=== PATIENT | female | born 1965 | race Caucasian/White ===

== ENCOUNTER 2016-12-06 17:24 | Emergency (ER) | payer BC ==
[2016-12-06 17:36] VITALS: BP 115/66
--- NOTE | 2016-12-06 20:18 | EDM.PDOC ---
ED HPI GENERAL MEDICAL PROBLEM - General Chief Complaint: Diabetic Complaint Stated Complaint: High blood sugar Time Seen by Provider: 12/06/16 17:50 Source of Information: Reports: Patient, RN Notes Reviewed History Limitations: Reports: No Limitations - History of Present Illness INITIAL COMMENTS - FREE TEXT/NARRATIVE: 51 year old female with history of type II diabetes presents to the ED today with chief complaint of high blood sugars for the past few days. She reports that her blood sugar levels have ranged from 200 to the high 300s. Today at 1430 , her glucose was 377. She reports that her blood sugar is normally well controlled on Lantus 52 units per day. She has been taking her diabetes medications as prescribed. She normally does not check her blood sugars throughout the day but has been the past few days. She is checking her blood sugar before and in between meals. She reports seeing a stock holder and was told that she is following a proper diet. She has had no changes in her diet or medications prior to onset. She phoned her PCP Dr. Corral who prescribed her Novolog and was instructed to take 5 units with meals. She has done this with no improvement in her blood sugar levels. The patient increased the Novolog dose to 10 units with a meal today. Additional pertinent history: The patient reports brain fog, forgetful, fatigued , and off balance at times. This is not normal for her. She's finding that normal, easy tasks are difficult for her. She has no facial droop, extremity weakness. She reports several areas of joint pain. This is not a new problem for her but she says it's become worse recently. She's seen a customer resolution specialist in the past and was told that she has osteoarthritis. The patient feels it's more than that and plans to get a second opinion. She denies fever, chills, recent illness, cough, chest pain, shortness of breath, abdominal pain, nausea, vomiting, diarrhea. Generalized Pain Score (Numeric/FACES): 6 - Related Data Allergies Allergy/AdvReac Type Severity Reaction Status Date / Time prochlorperazine edisylate Allergy Severe facial Verified 12/06/16 17:29 [From Compazine] numbness prochlorperazine maleate Allergy Severe facial Verified 12/06/16 17:29 [From Compazine] numbness aspirin Allergy Airway Verified 12/06/16 17:29 Tightness lisinopril Allergy Anaphylactic Verified 12/06/16 17:29 Shock Home Meds: Home Meds Atenolol. 02/22/14 [History] Hctz. 02/22/14 [History] Insulin Glarg,Human.Rec.Analog [LantUS] 14 unit SQ DAILY #1 bottle 02/22/14 [Rx] Venlafaxine [Effexor XR] 150 mg PO DAILY 02/22/14 [History] Albuterol/Ipratropium [DuoNeb 3.0-0.5 MG/3 ML] 3 ml NEB QID PRN #25 neb [Rx] Levofloxacin [Levaquin] 500 mg PO DAILY #5 tablet 06/17/15 [Rx] predniSONE [Prednisone] 20 mg PO BID #10 tablet 06/17/15 [Rx] Past Medical History HEENT History: Reports: Impaired Vision Other HEENT History: wears glasses Cardiovascular History: Reports: High Cholesterol, Hypertension Respiratory History: Reports: Asthma Gastrointestinal History: Reports: GERD 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: Psychiatric History: Reports: Depression Endocrine/Metabolic History: Reports: Diabetes, Type II - Infectious Disease History Infectious Disease History: Reports: Chicken Pox - Past Surgical History GI Surgical History: Reports: Cholecystectomy Female Surgical History: Reports: Hysterectomy Social & Family History - Tobacco Use Smoking Status *Q: Current Every Day Smoker Years of Tobacco use: 30 Packs/Tins Daily: 0.3 - Alcohol Use Days Per Week of Alcohol Use: 5 Number of Drinks Per Day: 3 Total Drinks Per Week: 15 - Recreational Drug Use Recreational Drug Use: No ED ROS GENERAL - Review of Systems Review Of Systems: See Below Constitutional: Reports: Malaise, Fatigue. Denies: Fever, Chills, Weakness, Diaphoresis Respiratory: Reports: No Symptoms. Denies: Shortness of Breath, Cough Cardiovascular: Reports: No Symptoms. Denies: Chest Pain, Dyspnea on Exertion, Edema, Lightheadedness, Syncope GI/Abdominal: Reports: No Symptoms. Denies: Abdominal Pain, Nausea, Vomiting Musculoskeletal: Reports: Other (joint pain ) ED EXAM GENERAL NO PERIP PULSE - Physical Exam Exam: See Below Exam Limited By: No Limitations General Appearance: Alert, WD/WN, No Apparent Distress, Anxious Eye Exam: Bilateral Eye: EOMI, PERRL Neck: Normal Inspection, Supple, Non-Tender, Full Range of Motion Respiratory/Chest: No Respiratory Distress, Lungs Clear, Normal Breath Sounds, No Accessory Muscle Use, Chest Non-Tender Cardiovascular: Normal Peripheral Pulses, Regular Rate, Rhythm, No Edema, No Murmur GI/Abdominal: Normal Bowel Sounds, Soft, Non-Tender Neurological: Alert, Oriented, CN II-XII Intact, Normal Cognition, Normal Gait, No Motor/Sensory Deficits, Other (cerebellar testing is itnact ) Psychiatric: Anxious, Tearful Skin Exam: Warm, Dry, Intact, Normal Color Course - Vital Signs Last Recorded V/S: Last Vital Signs Temp 97.3 F 12/06/16 17:30 Pulse 88 12/06/16 17:30 Resp 15 12/06/16 17:30 BP 115/66 12/06/16 17:30 Pulse Ox 98 12/06/16 17:30 - Orders/Labs/Meds Labs: Laboratory Tests 12/06/16 12/06/16 12/06/16 Range/Units 17:49 18:28 18:28 WBC 7.18 (3.98-10.04) K/mm3 RBC 3.98 (3.98-5.22) M/mm3 Hgb 12.4 (11.2-15.7) gm/L Hct 36.0 (34.1-44.9) % MCV 90.5 (79.4-94.8) fl MCH 31.2 (25.6-32.2) pg MCHC 34.4 (32.2-35.5) g/dl RDW Std Deviation 42.2 (36.4-46.3) fL Plt Count 268 (182-369) K/mm3 MPV 9.8 (9.4-12.3) fl Neut % (Auto) 54.1 (34.0-71.1) % Lymph % (Auto) 32.5 (19.3-51.7) % Hughes % (Auto) 7.9 (4.7-12.5) % Eos % (Auto) 4.6 (0.7-5.8) Baso % (Auto) 0.6 (0.1-1.2) % Neut # (Auto) 3.89 (1.56-6.13) K/mm3 Lymph # (Auto) 2.33 (1.18-3.74) K/mm3 Hughes # (Auto) 0.57 H (0.24-0.36) K/mm3 Eos # (Auto) 0.33 (0.04-0.36) K/mm3 Baso # (Auto) 0.04 (0.01-0.08) K/mm3 Sodium 137 (136-145) mEq/L Potassium 3.4 L (3.5-5.1) mEq/L Chloride 100 (98-107) mEq/L Carbon Dioxide 26 (21-32) mEq/L Anion Gap 14.4 (5-15) BUN 17 (7-18) mg/dL Creatinine 1.5 H (0.55-1.02) mg/dL Est Cr Clr Drug Dosing 37.45 mL/min Estimated GFR (MDRD) 36 (>60) mL/min BUN/Creatinine Ratio 11.3 L (14-18) Glucose 339 H (74-106) mg/dL POC Glucose 299 H (70-105) mg/dL Serum Osmolality 304 H (280-300) mosm/kg Calcium 9.7 (8.5-10.1) mg/dL Total Bilirubin 0.3 (0.2-1.0) mg/dL AST 20 (15-37) U/L ALT 33 (14-59) U/L Alkaline Phosphatase 107 (46-116) U/L Total Protein 7.3 (6.4-8.2) g/dl Albumin 3.8 (3.4-5.0) g/dl Globulin 3.5 gm/dL Albumin/Globulin Ratio 1.1 (1-2) Lipase 140 (73-393) U/L Urine Color (Yellow) Urine Appearance (Clear) Urine pH (5.0-8.0) Ur Specific Flom (1.005-1.030) Urine Protein (Negative) Urine Glucose (UA) (Negative) Urine Ketones (Negative) Urine Occult Blood (Negative) Urine Nitrite (Negative) Urine Bilirubin (Negative) Urine Urobilinogen (0.2-1.0) Ur Leukocyte Esterase (Negative) Urine RBC (0-5) /hpf Urine WBC (0-5) /hpf Ur Epithelial Cells (0-5) /hpf Urine Bacteria (FEW) /hpf Urine Mucus (FEW) /hpf Ketones (0.0-0.3) mM 12/06/16 12/06/16 Range/Units 18:28 19:43 WBC (3.98-10.04) K/mm3 RBC (3.98-5.22) M/mm3 Hgb (11.2-15.7) gm/L Hct (34.1-44.9) % MCV (79.4-94.8) fl MCH (25.6-32.2) pg MCHC (32.2-35.5) g/dl RDW Std Deviation (36.4-46.3) fL Plt Count (182-369) K/mm3 MPV (9.4-12.3) fl Neut % (Auto) (34.0-71.1) % Lymph % (Auto) (19.3-51.7) % Hughes % (Auto) (4.7-12.5) % Eos % (Auto) (0.7-5.8) Baso % (Auto) (0.1-1.2) % Neut # (Auto) (1.56-6.13) K/mm3 Lymph # (Auto) (1.18-3.74) K/mm3 Hughes # (Auto) (0.24-0.36) K/mm3 Eos # (Auto) (0.04-0.36) K/mm3 Baso # (Auto) (0.01-0.08) K/mm3 Sodium (136-145) mEq/L Potassium (3.5-5.1) mEq/L Chloride (98-107) mEq/L Carbon Dioxide (21-32) mEq/L Anion Gap (5-15) BUN (7-18) mg/dL Creatinine (0.55-1.02) mg/dL Est Cr Clr Drug Dosing mL/min Estimated GFR (MDRD) (>60) mL/min BUN/Creatinine Ratio (14-18) Glucose (74-106) mg/dL POC Glucose (70-105) mg/dL Serum Osmolality (280-300) mosm/kg Calcium (8.5-10.1) mg/dL Total Bilirubin (0.2-1.0) mg/dL AST (15-37) U/L ALT (14-59) U/L Alkaline Phosphatase (46-116) U/L Total Protein (6.4-8.2) g/dl Albumin (3.4-5.0) g/dl Globulin gm/dL Albumin/Globulin Ratio (1-2) Lipase (73-393) U/L Urine Color Yellow (Yellow) Urine Appearance Clear (Clear) Urine pH 7.0 (5.0-8.0) Ur Specific Flom 1.020 (1.005-1.030) Urine Protein 2+ H (Negative) Urine Glucose (UA) 2+ H (Negative) Urine Ketones Negative (Negative) Urine Occult Blood Trace-lysed H (Negative) Urine Nitrite Negative (Negative) Urine Bilirubin Negative (Negative) Urine Urobilinogen 0.2 (0.2-1.0) Ur Leukocyte Esterase Negative (Negative) Urine RBC 0-5 (0-5) /hpf Urine WBC 0-5 (0-5) /hpf Ur Epithelial Cells 5-10 H (0-5) /hpf Urine Bacteria Few (FEW) /hpf Urine Mucus Few (FEW) /hpf Ketones 0.22 (0.0-0.3) mM - Re-Assessments/Exams Free Text/Narrative Re-Assessment/Exam: Initial POC glucose is 299. Vitals stable. She has a normal neuro exam. CBC is normal. No evidence of infection to explain her rise in glucose levels. CMP is stable. K 3.4, creatinine 1.5, BUN 17, glucose 339, and anion gap is 14. Serum osmo is stable at 304 upper limits of normal. Serum ketones are WNL. There are no ketones in her urine. Lipase was ordered because the patient was very concerned about pancreatitis or pancreatic cancer. She has no symptoms to suggest these etiologies but she was very concerned. Workup today is negative for DKA or HHS. Her labs, vitals, and exam are stable. The cause of her sudden increase in blood sugars is unclear but may be related to her joint pain and inflammation. This will need to be further evaluated in the outpatient setting with her PCP. From an ER standpoint, she is stable and can be discharged with close PCP follow-up. She was instructed to monitor her glucose before each meal and take 5-10 units of Novolog with meals. I encouraged her to keep a dietary and blood glucose journal. She was instructed to return if her glucose continues to rise or if her glucometer reads "high." Departure - Departure Time of Disposition: 20:16 Disposition: Home, Self-Care 01 Condition: Good Clinical Impression: Hyperglycemia - Discharge Information Instructions: Hyperglycemia, [id number] Referrals: Eric Linares MD [Primary Care Provider] - Forms: ED Department Discharge Additional Instructions: Follow-up with Dr. Corral in 2-3 days Call the clinic in the morning to schedule Drink at least 80-100 oz of water per day Return to ER if your blood sugar becomes too high for your glucometer to read Check your blood sugar before every meal Take 5-10 units of Novolog with every meal if your glucose is over 200 Return to ER with any worsening of symptoms or additional concerns
== END 2016-12-06 20:27 | disposition home or self-care (01) ==
LOC: JD.ED 17:24
DX: E11.65 Type 2 diabetes mellitus with hyperglycemia (principal); E78.00 Pure hypercholesterolemia, unspecified; I10 Essential (primary) hypertension; J45.909 Unspecified asthma, uncomplicated; F17.210 Nicotine dependence, cigarettes, uncomplicated; K21.9 Gastro-esophageal reflux disease without esophagitis; Z90.49 Acquired absence of other specified parts of digestive tract; Z88.6 Allergy status to analgesic agent; Z79.899 Other long term (current) drug therapy; Z88.8 Allergy status to other drugs, medicaments and biological substances; Z90.710 Acquired absence of both cervix and uterus; Z79.4 Long term (current) use of insulin
CPT/HCPCS: 36415; 80053; 81001; 82009; 82962; 83690; 83930; 85025; 99283

== ENCOUNTER 2020-10-08 06:15 | Day surgery (SDC) | payer BC ==
[2020-10-08] MEDS ORDERED: Triamcinolone Acetonide 40 MG/ML 1 ML SDV ONE (06:24)
[2020-10-08] MEDS ORDERED: Lidocaine 1% with EPINEPHrine 1:100,000 10 ML MDV ONE (06:24)
[2020-10-08] MEDS ORDERED: Lidocaine 1% 30 ML SDV ONE (06:30)
[2020-10-08] MEDS ORDERED: Lactated Ringers 1,000 ML IV SCH (07:00)
[2020-10-08] MEDS ORDERED: Lidocaine 1%/Sod Bicarbonate in NS 8.4% 1 ML Syringe IDERM PRN (07:00)
[2020-10-08] MEDS ORDERED: Sodium Chloride 0.9% 10 ML Syringe FLUSH PRN (07:00)
--- NOTE | 2020-10-08 07:03 | PCM.PREANE ---
Preanesthetic Assessment - Procedure Proposed Procedure: right carpal tunnel release with left carpal tunnel steriod injection - Anesthesia/Transfusion/Family Hx Anesthesia History: Prior Anesthesia Reaction (nasuea) Family History of Anesthesia Reaction: No (nausea vommitting in mother) Transfusion History: No Prior Transfusion(s) Intubation History: Unknown - Review of Systems General: No Symptoms Pulmonary: Other (asthma history - use steriod inahler once per week ) Cardiovascular: No Symptoms Gastrointestinal: Other (GERD- well controlled with meds ) Neurological: Numbness, Tingling (bilateral N& T upper extremities ) Other: Reports: Depression, Anxiety - Physical Assessment NPO Status Date: 10/07/20 NPO Status Time: 23:00 Height: 1.63 m Weight: 81 kg ASA Class: 3 Mental Status: Alert & Oriented x3 Airway Class: Mallampati = 1 Dentition: Reports: Normal Dentition Thyro-Mental Finger Breadths: 3 Mouth Opening Finger Breadths: 5 ROM/Head Extension: Full Lungs: Clear to Auscultation, Normal Respiratory Effort Cardiovascular: Regular Rate, Regular Rhythm - Allergies Allergies/Adverse Reactions: Allergies Allergy/AdvReac Type Severity Reaction Status Date / Time prochlorperazine edisylate Allergy Severe facial Verified 10/08/20 06:54 [From Compazine] numbness prochlorperazine maleate Allergy Severe facial Verified 10/08/20 06:54 [From Compazine] numbness aspirin Allergy Airway Verified 10/08/20 06:54 Tightness lisinopril Allergy Anaphylactic Verified 10/08/20 06:54 Shock - Blood Blood Available: No Product(s) Available: None - Anesthesia Plan Beta López: Atenolol - Acknowledgements Anesthesia Type Planned: MAC Pt an Appropriate Candidate for the Planned Anesthesia: Yes Alternatives and Risks of Anesthesia Discussed w Pt/Guardian: Yes Pt/Guardian Understands and Agrees with Anesthesia Plan: Yes PreAnesthesia Questionnaire HEENT History: Reports: Impaired Vision Other HEENT History: wears glasses Cardiovascular History: Reports: High Cholesterol, Hypertension Respiratory History: Reports: Asthma Gastrointestinal History: Reports: GERD 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: Psychiatric History: Reports: Depression Endocrine/Metabolic History: Reports: Diabetes, Type II - Infectious Disease History Infectious Disease History: Reports: Chicken Pox - Past Surgical History GI Surgical History: Reports: Cholecystectomy Female Surgical History: Reports: Hysterectomy - CURRENT (IN HOUSE) MEDS Current Meds: Current Medications Lactated Ringer's (Ringers, Lactated) 1,000 mls @ 125 mls/hr IV ASDIRECTED JANICE Stop: 10/08/20 23:00 Lidocaine/Sodium Bicarbonate (Lidocaine 1%/Sod Bicarbonate In Ns 8.4% 1 Ml Syringe) 0.25 ml IDERM ONETIME PRN PRN Reason: Prior to IV Start Stop: 10/08/20 18:00 Sodium Chloride (Sodium Chloride 0.9% 10 Ml Syringe) 10 ml FLUSH ASDIRECTED PRN PRN Reason: Keep Vein Open Stop: 10/08/20 18:00 Discontinued Medications Bupivacaine HCl (Bupivacaine 0.25% 10 Ml Sdv) Confirm Administered Dose 20 ml .ROUTE .STK-MED ONE Stop: 10/08/20 06:25 Lidocaine HCl (Lidocaine 1% 30 Ml Sdv) Confirm Administered Dose 30 ml .ROUTE .STK-MED ONE Stop: 10/08/20 06:31 Lidocaine/Epinephrine (Lidocaine 1% With Epinephrine 1:100,000 10 Ml Mdv) Confirm Administered Dose 10 ml .ROUTE .STK-MED ONE Stop: 10/08/20 06:25 Triamcinolone Acetonide (Triamcinolone Acetonide 40 Mg/Ml 1 Ml Sdv) Confirm Administered Dose 40 mg .ROUTE .STK-MED ONE Stop: 10/08/20 06:25 Triamcinolone Acetonide (Triamcinolone Acetonide 40 Mg/Ml 1 Ml Sdv) Confirm Administered Dose 80 mg .ROUTE .STK-MED ONE Stop: 10/08/20 06:44
[2020-10-08] MEDS: Bupivacaine 0.25% 10 ML SDV ONE ×4 (07:40→07:50)
[2020-10-08] MEDS: Triamcinolone Acetonide 40 MG/ML 1 ML SDV ONE ×2 (07:48→07:50)
[2020-10-08] MEDS ORDERED: fentaNYL 100 MCG/2 ML SDV ONE (07:50)
[2020-10-08] MEDS ORDERED: Midazolam 1 MG/ML 2 ML SDV ONE (07:50)
[2020-10-08] MEDS ORDERED: Lidocaine 1% 4 ML ONE (07:50)
[2020-10-08] MEDS ORDERED: ceFAZolin 1 GM Vial ONE (07:50)
[2020-10-08] MEDS ORDERED: Propofol 200 MG/20 ML SDV ONE (07:50)
[2020-10-08] MEDS ORDERED: Ondansetron 4 MG/2 ML SDV ONE (07:55)
--- NOTE | 2020-10-08 08:08 | PCM48HPAN ---
Post Anesthesia Note - EVALUATION WITHIN 48HRS OF ANESTHETIC Vital Signs in Normal Range: Yes Patient Participated in Evaluation: Yes Respiratory Function Stable: Yes Airway Patent: Yes Cardiovascular Function Stable: Yes Hydration Status Stable: Yes Pain Control Satisfactory: Yes Nausea and Vomiting Control Satisfactory: Yes Mental Status Recovered: Yes Vital Signs: Last Vital Signs Temp 36.4 C 10/08/20 07:00 Pulse 81 10/08/20 07:00 Resp 16 10/08/20 07:00 BP 121/63 10/08/20 07:00 Pulse Ox 97 10/08/20 07:00
[2020-10-08 08:39] VITALS: BP 152/72; PULSE 76
--- NOTE | 2020-10-08 11:29 | PCM.OPNOTE ---
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
--- NOTE | 2020-10-16 09:16 | OR ---
DATE OF OPERATION: 10/08/2020 SURGEON: Darin Toney MD OPERATION PERFORMED: Right carpal tunnel release with left carpal tunnel injection, and bilateral basilar thumb joint injections. PREOPERATIVE DIAGNOSIS: Bilateral median nerve compression neuropathy and bilateral basilar thumb joint arthritis. POSTOPERATIVE DIAGNOSIS: Bilateral median nerve compression neuropathy and bilateral basilar thumb joint arthritis. ANESTHESIA: Local MAC. ANESTHESIA PROVIDER: Mya Gudino. DIRECTOR ECONOMIC: Ranjana Shah PA-C ESTIMATED BLOOD LOSS: 5 mL. COMPLICATIONS: None. CONDITION: Stable. DESCRIPTION OF PROCEDURE: The patient was identified in the preop holding area. Proper site was marked and identified by the surgeon. The patient was taken back to the operating theater where after adequate anesthesia, the patient's right upper extremity was sterilely prepped and draped in the usual sterile fashion. OR time-out was performed. The patient did not receive antibiotics and it is not indicated for soft tissue hand procedure. At this time, the right upper extremity was exsanguinated and an Esmarch was used as a tourniquet on the forearm. At this time, using 1% lidocaine without epinephrine and 0.25% Marcaine without epinephrine, the palmar cutaneous branch of the median nerve was anesthetized and then the incisional site was anesthetized using Tristan cardinal line and ulnar border of the fourth digit as reference. Once this had set up, an incision was made. Blunt dissection was taken down to the palmar cutaneous fascia. Palmar cutaneous fascia was incised with a [place] blade. At this time, the transverse carpal ligament was identified. A small rent was made in the transverse carpal ligament with a Somervell blade under direct visualization. Resection of the transverse carpal ligament was done distally using tenotomy scissors making sure to stop short of the palmar arch. At this time, attention was turned proximally after it was found to be adequately released. Using the tenotomy scissors keeping the tips ulnar to protect the palmar cutaneous branch of the median nerve, the superficial forearm fascia as well as the transverse carpal ligament were resected proximally. It was found to be adequate release both proximally and distally. At this time, adequate saline was irrigated through the wound. 4-0 nylon sutures were used closure of the skin. The patient was placed in a sterile soft dressing and sent to PACU in stable condition. After this was completed, under sterile technique, the bilateral basilar thumb joints were injected with 1 mL of 40 mg of Kenalog and 1 mL of 0.25% Marcaine and then the left carpal tunnel was injected with 1 mL of 40 mg of Kenalog and 2 mL of 0.25% Marcaine. The patient tolerated all procedures well and was sent to the PACU in stable condition. RIZWAN /[id number]
== END 2020-10-08 08:41 | disposition home or self-care (01) ==
LOC: JD.SDS 06:15
PROVIDERS: ATTEND Orthopaedic Surgery
DX: G56.03 Carpal tunnel syndrome, bilateral upper limbs (principal); M18.12 Unilateral primary osteoarthritis of first carpometacarpal joint, left hand; E11.9 Type 2 diabetes mellitus without complications; J45.40 Moderate persistent asthma, uncomplicated; G25.81 Restless legs syndrome; E78.5 Hyperlipidemia, unspecified; I12.9 Hypertensive chronic kidney disease with stage 1 through stage 4 chronic kidney disease, or unspecified chronic kidney disease; N18.30 Chronic kidney disease, stage 3 unspecified; Z88.8 Allergy status to other drugs, medicaments and biological substances; Z79.4 Long term (current) use of insulin; Z79.899 Other long term (current) drug therapy; Z87.891 Personal history of nicotine dependence
CPT/HCPCS: 01810; 82947; J0690; J2250; J2405; J2704; J3010; J3301; J3490; J7120

== ENCOUNTER 2021-02-13 16:59 | Emergency (ER) | payer BC ==
[2021-02-13] MEDS ORDERED: Atenolol 50 MG Tab PO ONE (17:37)
--- NOTE | 2021-02-13 17:38 | EDM.PDOC ---
ED HPI GENERAL MEDICAL PROBLEM - General Chief Complaint: Chest Pain Stated Complaint: CHEST PAIN Time Seen by Provider: 02/13/21 17:24 Source of Information: Reports: Patient, Family History Limitations: Reports: No Limitations - History of Present Illness INITIAL COMMENTS - FREE TEXT/NARRATIVE: She presents with onset of chest pain happened about 5 or 5:00 today was not doing anything at the time feels like heavy pressure in her left side of her chest going through to her back. Does not radiate to her arms neck or shoulders felt a little lightheaded but noDiaphoresis or fainting spell no nausea no increasing work of breathing or shortness of breath no pain with breathing. Has not had any fevers chills or sweats no coughing cold symptoms runny nose or sore throat no nausea vomiting or diarrhea no urinary symptoms. She does occasionally smoke she does have insulin-dependent diabetes and has high cholesterol Father had 6 way bypass. Patient had ran out of her atenolol and has not been able to take it this morning does feel a slight headache no vision changes no focal weakness no balance problems. Chest Pain Score (Numeric/FACES): 5 - Related Data Allergies Allergy/AdvReac Type Severity Reaction Status Date / Time prochlorperazine edisylate Allergy Intermediate facial Verified 02/13/21 17:16 [From Compazine] numbness prochlorperazine maleate Allergy Intermediate facial Verified 02/13/21 17:16 [From Compazine] numbness aspirin Allergy Airway Verified 02/13/21 17:16 Tightness lisinopril Allergy Anaphylactic Verified 02/13/21 17:16 Shock Home Meds: Home Meds Albuterol Sulfate [Albuterol Sulfate HFA] 1 - 2 puff INH Q4H PRN 10/08/20 [History] Budesonide/Formoterol Fumarate [Symbicort 160-4.5 Mcg Inhaler] 2 puff INH DAILY 10/08/20 [History] Cyclobenzaprine [Flexeril] 5 mg PO Q12H PRN 10/08/20 [History] DULoxetine [Cymbalta] 30 mg PO DAILY 10/08/20 [History] DULoxetine [Cymbalta] 60 mg PO DAILY 10/08/20 [History] Fluticasone Propionate [Flonase] 1 dose NASBOTH BID 10/08/20 [History] Furosemide [Lasix] 40 mg PO DAILY 10/08/20 [History] Gabapentin [Neurontin] 600 mg PO QID 10/08/20 [History] Insulin Aspart [NovoLOG] 1 dose SQ ASDIRECTED PRN 10/08/20 [History] Insulin Glargine,Hum.Rec.Anlog [Lantus Solostar] 80 units SQ DAILY 10/08/20 [History] Losartan [Cozaar] 100 mg PO DAILY 10/08/20 [History] Montelukast Sodium [Singulair] 10 mg PO DAILY 10/08/20 [History] Olopatadine [Pataday 0.2% Ophth Soln] 1 drop EYEBOTH DAILY 10/08/20 [History] Promethazine [Phenergan] 25 mg PO Q4H PRN 10/08/20 [History] Rosuvastatin Calcium [Crestor] 40 mg PO DAILY 10/08/20 [History] dilTIAZem HCL [Cardizem Cd] 240 mg PO DAILY 10/08/20 [History] tiZANidine [Zanaflex] 6 g PO BEDTIME 10/08/20 [History] atenoloL [Atenolol] 50 mg PO DAILY #30 02/13/21 [Rx] Past Medical History HEENT History: Reports: Impaired Vision Other HEENT History: wears glasses Cardiovascular History: Reports: High Cholesterol, Hypertension, Other (See Below) Other Cardiovascular History: edema Respiratory History: Reports: Asthma Gastrointestinal History: Reports: Colon Polyp, GERD, Hemorrhoids Genitourinary History: Reports: Other (See Below) Other Genitourinary History: JORDANA, CKD III, proteinuria 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: Musculoskeletal History: Reports: Back Pain, Chronic, Osteoarthritis, Other (See Below) Other Musculoskeletal History: restless leg syndrome, polyarthralgia, bilateral carpal tunnel syndrome, greater trochanteric bursitis, left ACL tear, muscle spasms, bilateral hip osteonecrosis, abductor tendinitis Neurological History: Reports: Other (See Below) Other Neuro History: lumbar facet arthropathy, lumbar degenerative disc disease, lumbar radiculopathy Psychiatric History: Reports: None, Depression Endocrine/Metabolic History: Reports: Diabetes, Type II Hematologic History: Reports: None Immunologic History: Reports: None Oncologic (Cancer) History: Reports: None Dermatologic History: Reports: None - Infectious Disease History Infectious Disease History: Reports: Chicken Pox - Past Surgical History Head Surgeries/Procedures: Reports: None HEENT Surgical History: Reports: Tonsillectomy Respiratory Surgical History: Reports: None GI Surgical History: Reports: Cholecystectomy Female Surgical History: Reports: Hysterectomy Other Female Surgeries/Procedures: bladder lift Endocrine Surgical History: Reports: None Neurological Surgical History: Reports: None Musculoskeletal Surgical History: Reports: None Oncologic Surgical History: Reports: None Dermatological Surgical History: Reports: None Social & Family History - Tobacco Use Tobacco Use Status *Q: Unknown Ever Used Tobacco - Caffeine Use Caffeine Use: Reports: Soda ED ROS GENERAL - Review of Systems Review Of Systems: See Below Constitutional: Denies: Fever, Chills, Diaphoresis HEENT: Denies: Rhinitis, Throat Pain Respiratory: Denies: Shortness of Breath, Wheezing, Pleuritic Chest Pain, Cough Cardiovascular: Reports: Chest Pain, Blood Pressure Problem. Denies: Dyspnea on Exertion, Edema, Lightheadedness, Orthopnea, Palpitations, PND Endocrine: Denies: Fatigue GI/Abdominal: Denies: Abdominal Pain, Diarrhea, Nausea, Vomiting : Denies: Dysuria Musculoskeletal: Reports: Back Pain. Denies: Neck Pain Skin: Reports: No Symptoms Neurological: Reports: No Symptoms, Headache Psychiatric: Reports: Anxiety ED EXAM, GENERAL - Physical Exam Exam: See Below Exam Limited By: No Limitations General Appearance: Alert, WD/WN, Anxious Eye Exam: Bilateral Eye: PERRL Throat/Mouth: Normal Inspection, Normal Oropharynx Head: Atraumatic, Normocephalic Neck: Normal Inspection, Supple, Non-Tender Respiratory/Chest: No Respiratory Distress, Lungs Clear, Normal Breath Sounds, No Accessory Muscle Use Cardiovascular: Normal Peripheral Pulses, Regular Rate, Rhythm, No Edema, No JVD GI/Abdominal: Normal Bowel Sounds, Soft, Non-Tender, No Organomegaly, No Distention Extremities: Normal Inspection, No Pedal Edema Neurological: Alert, Oriented, CN II-XII Intact, Normal Cognition, No Motor/Sensory Deficits Psychiatric: Anxious Skin Exam: Warm, Dry #1 Interpretation EKG Date: 02/13/21 Rhythm: NSR EKG Interpretation Comments: I reviewed EKG showing sinus rhythm rate of 85 AR 127 QRS is 71 QT corrected 449 baseline wandering from the position of the patient, no acute ST or T wave changes no acute ischemia noted. Course - Vital Signs Text/Narrative:: Ran out of her atenolol, comes in with chest pain, rule out acute coronary syndrome seems less likely PE or DVT, seems less likely aortic dissection no migratory pain or sharp tearing pain. Will give patient atenolol, suspect she does have some minor anxiety with this chest pain however. Work-up and evaluation as appropriate especially moderate score for her heart score anticipate at least need to serial troponins. She does have some atypical features with it however. Last Recorded V/S: Last Vital Signs Temp 98.5 F 02/13/21 17:13 Pulse 89 02/13/21 18:20 Resp 16 02/13/21 17:13 BP 157/85 H 02/13/21 18:20 Pulse Ox 100 02/13/21 17:13 - Orders/Labs/Meds Orders: Active Orders 24 hr Category Date Time Status Cardiac Monitoring [RC] . DIRECTED Care 02/13/21 17:39 Active Peripheral IV Care [RC] . DIRECTED Care 02/13/21 17:39 Active CXR [Chest 1V Frontal] [CR] Stat Exams 02/13/21 17:36 Taken UA RFX SUSIE AND CULT IF INDIC [URIN] Stat Lab 02/13/21 17:37 Ordered Sodium Chloride 0.9% [Saline Flush] Med 02/13/21 17:39 Active 10 ml FLUSH ASDIRECTED PRN Peripheral IV Insertion Adult [OM.PC] Stat Oth 02/13/21 17:39 Ordered EKG 12 Lead [EK] Stat Ther 02/13/21 17:25 Ordered Medication Orders Sodium Chloride (Sodium Chloride 0.9% 10 Ml Syringe) 10 ml FLUSH ASDIRECTED PRN PRN Reason: Keep Vein Open Labs: Laboratory Tests 02/13/21 02/13/21 Range/Units 18:28 18:28 WBC 7.02 (3.98-10.04) K/mm3 RBC 4.87 (3.98-5.22) M/mm3 Hgb 16.5 H D (11.2-15.7) gm/dl Hct 50.2 H (34.1-44.9) % MCV 103.1 H D (79.4-94.8) fl MCH 33.9 H (25.6-32.2) pg MCHC 32.9 (32.2-35.5) g/dl RDW Std Deviation 50.1 H (36.4-46.3) fL Plt Count 280 (182-369) K/mm3 MPV 9.6 (9.4-12.3) fl Neut % (Auto) 48.4 (34.0-71.1) % Lymph % (Auto) 40.0 (19.3-51.7) % [place] % (Auto) 8.3 (4.7-12.5) % Eos % (Auto) 2.4 (0.7-5.8) Baso % (Auto) 0.6 (0.1-1.2) % Neut # (Auto) 3.40 (1.56-6.13) K/mm3 Lymph # (Auto) 2.81 (1.18-3.74) K/mm3 [place] # (Auto) 0.58 H (0.24-0.36) K/mm3 Eos # (Auto) 0.17 (0.04-0.36) K/mm3 Baso # (Auto) 0.04 (0.01-0.08) K/mm3 Sodium 137 (136-145) mEq/L Potassium 3.4 L (3.5-5.1) mEq/L Chloride 98 (98-107) mEq/L Carbon Dioxide 29 (21-32) mEq/L Anion Gap 13.4 (5-15) BUN 16 (7-18) mg/dL Creatinine 1.1 H (0.55-1.02) mg/dL Est Cr Clr Drug Dosing TNP Estimated GFR (MDRD) 51 (>60) mL/min BUN/Creatinine Ratio 14.5 (14-18) Glucose 88 (70-99) mg/dL Calcium 10.0 (8.5-10.1) mg/dL Total Bilirubin 0.5 (0.2-1.0) mg/dL AST 37 (15-37) U/L ALT 44 (14-59) U/L Alkaline Phosphatase 103 (46-116) U/L Troponin I < 0.017 (0.00-0.056) ng/mL Total Protein 8.8 H (6.4-8.2) g/dl Albumin 4.7 (3.4-5.0) g/dl Globulin 4.1 gm/dL Albumin/Globulin Ratio 1.2 (1-2) Lipase 74 (73-393) U/L Meds: Medications Generic Name Dose Route Start Last Admin Trade Name Freq PRN Reason Stop Dose Admin Sodium Chloride 10 ml 02/13/21 17:39 Sodium Chloride 0.9% 10 Ml Syringe FLUSH ASDIRECTED PRN Keep Vein Open Discontinued Medications Generic Name Dose Route Start Last Admin Trade Name Freq PRN Reason Stop Dose Admin Atenolol 50 mg 02/13/21 17:37 02/13/21 18:20 Atenolol 50 Mg Tab PO 02/13/21 17:38 50 mg ONETIME ONE Administration Morphine Sulfate 4 mg 02/13/21 17:39 02/13/21 18:12 Morphine 4 Mg/Ml Syringe IVPUSH 02/13/21 17:40 4 mg ONETIME ONE Administration Ondansetron HCl 4 mg 02/13/21 17:39 02/13/21 18:12 Ondansetron 4 Mg/2 Ml Sdv IVPUSH 02/13/21 17:40 4 mg ONETIME ONE Administration - Radiology Interpretation Free Text/Narrative:: Portable chest x-ray shows poor inspiratory effort no cardiomegaly, no pleural effusion or infiltrate, no acute findings. - Re-Assessments/Exams Free Text/Narrative Re-Assessment/Exam: 02/13/21 19:16 Sodium 137 potassium 3.4 chloride 98 CO2 is 29 BUN is 16 creatinine 1.1 glucose 88 liver function test normal troponin negative lipase normal white blood cell count 7000 hemoglobin 16.5 hematocrit 50.2 platelet count 280,000 02/13/21 19:22 Patient does not want to stay for second troponin she understands the potential risk especially in light of her heart score and delta troponin/onset of troponin leak would be farther into the course of her timing. She does feel a lot be tter and she does feel like it is from the stress of not being on get her prescription filled and that they were trying to tell her that she never picked it up but could not get a refill. We will write her for prescription for #30 of the atenolol to 50 mg, follow-up with her primary care provider Departure - Departure Time of Disposition: 19:30 Disposition: Home, Self-Care 01 Condition: Good Clinical Impression: Chest pain Qualifiers: Chest pain type: unspecified Qualified Code(s): R07.9 - Chest pain, unspecified Hypertension Qualifiers: Hypertension type: unspecified Qualified Code(s): I10 - Essential (primary) hypertension Prescriptions: atenoloL [Atenolol] 50 mg PO DAILY #30 Instructions: Nonspecific Chest Pain, Adult, Hypertension, Adult, [id number] Referrals: Joe Talbert MD [Primary Care Provider] - Forms: ED Department Discharge Additional Instructions: Follow-up with your primary care provider on Monday make sure you continue your atenolol daily. Return to the emergency room with any increasing chest pain especially associated with shortness of breath lightheadedness dizziness breathing difficulty fainting spell or worsening symptoms. Care Plan Goals: Recommend follow-up with your primary provider on Monday to let them know he had come to the emergency room for chest pain. Fill up your new prescription for atenolol 50 mg once a day. Call 911 return if any recurrent chest pain especially associated with lightheadedness dizziness shortness of breath fainting spell breathing difficulty or worsening. Sepsis Event Note (ED) - Evaluation Sepsis Screening Result: No Definite Risk - Focused Exam Vital Signs: Vital Signs Temp Pulse Pulse Resp BP BP Pulse Ox 02/13/21 18:20 89 157/85 H 02/13/21 17:13 98.5 F 100 16 166/91 H 100 - My Orders Last 24 Hours: My Active Orders 02/13/21 17:25 EKG 12 Lead [EK] Stat 02/13/21 17:36 CXR [Chest 1V Frontal] [CR] Stat 02/13/21 17:37 UA RFX SUSIE AND CULT IF INDIC [URIN] Stat 02/13/21 17:39 Cardiac Monitoring [RC] . DIRECTED Peripheral IV Care [RC] . DIRECTED Sodium Chloride 0.9% [Saline Flush] 10 ml FLUSH ASDIRECTED PRN Peripheral IV Insertion Adult [OM.PC] Stat - Assessment/Plan Last 24 Hours: My Active Orders 02/13/21 17:25 EKG 12 Lead [EK] Stat 02/13/21 17:36 CXR [Chest 1V Frontal] [CR] Stat 02/13/21 17:37 UA RFX SUSIE AND CULT IF INDIC [URIN] Stat 02/13/21 17:39 Cardiac Monitoring [RC] . DIRECTED Peripheral IV Care [RC] . DIRECTED Sodium Chloride 0.9% [Saline Flush] 10 ml FLUSH ASDIRECTED PRN Peripheral IV Insertion Adult [OM.PC] Stat
[2021-02-13] MEDS ORDERED: Sodium Chloride 0.9% 10 ML Syringe FLUSH PRN (17:39)
[2021-02-13] MEDS ORDERED: Ondansetron 4 MG/2 ML SDV IVPUSH ONE (17:39)
[2021-02-13] MEDS ORDERED: Morphine 4 MG/ML Syringe IVPUSH ONE (17:39)
[2021-02-13 18:21] VITALS: BP 157/85; PULSE 89
--- NOTE | 2021-02-14 08:52 | CR ---
Chest: Portable view of the chest was obtained. Comparison: Prior chest x-ray of 06/17/15. Heart size and mediastinum are normal. Lungs are clear with no acute parenchymal change. Slight scoliosis is noted within the spine. No acute osseous abnormality is appreciated. Impression: 1. Incidental findings as described above. 2. Nothing acute is seen on portable chest x-ray. Diagnostic code #2
== END 2021-02-13 19:50 | disposition home or self-care (01) ==
LOC: JD.ED 16:59
DX: I12.9 Hypertensive chronic kidney disease with stage 1 through stage 4 chronic kidney disease, or unspecified chronic kidney disease (principal); E11.22 Type 2 diabetes mellitus with diabetic chronic kidney disease; N18.30 Chronic kidney disease, stage 3 unspecified; R07.9 Chest pain, unspecified; E78.00 Pure hypercholesterolemia, unspecified; J45.909 Unspecified asthma, uncomplicated; M19.90 Unspecified osteoarthritis, unspecified site; F17.200 Nicotine dependence, unspecified, uncomplicated; Z88.8 Allergy status to other drugs, medicaments and biological substances; Z79.4 Long term (current) use of insulin; Z79.899 Other long term (current) drug therapy
CPT/HCPCS: 36415; 71045; 80053; 83690; 84484; 85025; 93005; 96374; 96375; 99285; A9270; J2270; J2405

== ENCOUNTER 2021-04-28 06:13 | Day surgery (SDC) | payer BC ==
[~2021-04-28 06:13] MED LIST: Acetaminophen 325 MG Tab PO SCH; Lidocaine 1%/Sod Bicarbonate in NS 8.4% 1 ML Syringe IDERM PRN; Morphine 8 MG, EPINEPHrine 0.3 MG, Cefuroxime 750 MG, Sodium Chloride 0.9% 8.9 ML PRN; Pregabalin 25 MG Cap PO SCH; Sodium Chloride 0.9% 10 ML Syringe FLUSH PRN; oxyCODONE ER 10 MG TAB.ER PO SCH
[2021-04-28] MEDS: Lactated Ringers 1,000 ML IV SCH ×2 (06:40→09:30)
[2021-04-28] MEDS ORDERED: fentaNYL 100 MCG/2 ML SDV ONE (06:57)
[2021-04-28] MEDS ORDERED: Propofol 200 MG/20 ML SDV ONE ×2 (06:58→08:38)
[2021-04-28] MEDS ORDERED: Midazolam 1 MG/ML 2 ML SDV ONE ×2 (06:58→09:09)
--- NOTE | 2021-04-28 07:09 | PCM.PREANE ---
Preanesthetic Assessment - Procedure Proposed Procedure: Left total hip replacement - Anesthesia/Transfusion/Family Hx Anesthesia History: Prior Anesthesia Reaction (nasuea) Type of Anesthesia Reaction: Excessive Nausea/Vomiting Transfusion History: No Prior Transfusion(s) Intubation History: Unknown - Review of Systems General: No Symptoms Pulmonary: No Symptoms Cardiovascular: No Symptoms, Other (hx of silent NC) Gastrointestinal: No Symptoms Neurological: Pre-Existing Deficit (lower back pain), Other Other: Reports: Depression - Physical Assessment NPO Status Date: 04/27/21 NPO Status Time: 23:00 Vital Signs: Last Vital Signs Temp 98.2 F 04/28/21 06:00 Pulse 82 04/28/21 06:00 Resp 16 04/28/21 06:00 BP 138/87 04/28/21 06:00 Pulse Ox 95 04/28/21 06:00 Height: 1.63 m Weight: 79 kg ASA Class: 3 Mental Status: Alert & Oriented x3 Airway Class: Mallampati = 3 Dentition: Reports: [place](s) (reports loose molars upper left) Thyro-Mental Finger Breadths: 3 Mouth Opening Finger Breadths: 3 ROM/Head Extension: Full Lungs: Clear to Auscultation, Normal Respiratory Effort Cardiovascular: Regular Rate, Regular Rhythm - Lab Values: Laboratory Last Values POC Glucose 135 mg/dL (70-99) H 04/28/21 06:07 - Allergies Allergies/Adverse Reactions: Allergies Allergy/AdvReac Type Severity Reaction Status Date / Time prochlorperazine edisylate Allergy Intermediate facial Verified 04/28/21 06:31 [From Compazine] numbness prochlorperazine maleate Allergy Intermediate facial Verified 04/28/21 06:31 [From Compazine] numbness aspirin Allergy Airway Verified 04/28/21 06:31 Tightness lisinopril Allergy Anaphylactic Verified 04/28/21 06:31 Shock - Anesthesia Plan Beta López: Atenolol Med Last Dose Date: 04/28/21 Med Last Dose Time: 05:30 - Acknowledgements Anesthesia Type Planned: General Anesthesia, Spinal Pt an Appropriate Candidate for the Planned Anesthesia: Yes Alternatives and Risks of Anesthesia Discussed w Pt/Guardian: Yes Pt/Guardian Understands and Agrees with Anesthesia Plan: Yes PreAnesthesia Questionnaire HEENT History: Reports: Impaired Vision, Other (See Below) Other HEENT History: wears glasses, dry eyes Cardiovascular History: Reports: High Cholesterol, Hypertension, Other (See Below) Other Cardiovascular History: edema Respiratory History: Reports: Asthma Gastrointestinal History: Reports: Colon Polyp, GERD, Hemorrhoids, Other (See Below) Other Gastrointestinal History: post op nausea and vomiting Genitourinary History: Reports: Other (See Below) Other Genitourinary History: JORDANA, CKD III, proteinuria 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: Musculoskeletal History: Reports: Back Pain, Chronic, Osteoarthritis, Other (See Below) Other Musculoskeletal History: restless leg syndrome, polyarthralgia, bilateral carpal tunnel syndrome, greater trochanteric bursitis, left ACL tear, muscle spasms, bilateral hip osteonecrosis, abductor tendinitis Neurological History: Reports: Other (See Below) Other Neuro History: lumbar facet arthropathy, lumbar degenerative disc disease, lumbar radiculopathy Psychiatric History: Reports: Depression Endocrine/Metabolic History: Reports: Diabetes, Type II Hematologic History: Reports: None Immunologic History: Reports: None Oncologic (Cancer) History: Reports: None Dermatologic History: Reports: None - Infectious Disease History Infectious Disease History: Reports: Novel Coronavirus - Past Surgical History Head Surgeries/Procedures: Reports: None HEENT Surgical History: Reports: Tonsillectomy Respiratory Surgical History: Reports: None GI Surgical History: Reports: Cholecystectomy, Colonoscopy Female Surgical History: Reports: Breast Implant, Hysterectomy, Other (See Below) Other Female Surgeries/Procedures: bladder lift Endocrine Surgical History: Reports: None Neurological Surgical History: Reports: None Musculoskeletal Surgical History: Reports: None Oncologic Surgical History: Reports: None Dermatological Surgical History: Reports: None - SUBSTANCE USE Tobacco Use Status *Q: Former Tobacco User Recreational Drug Use History: No - HOME MEDS Home Medications: Home Meds Albuterol Sulfate [Albuterol Sulfate HFA] 1 - 2 puff INH Q4H PRN 10/08/20 [History] Budesonide/Formoterol Fumarate [Symbicort 160-4.5 Mcg Inhaler] 2 puff INH DAILY PRN 10/08/20 [History] DULoxetine [Cymbalta] 30 mg PO DAILY 10/08/20 [History] DULoxetine [Cymbalta] 60 mg PO DAILY 10/08/20 [History] Fluticasone Propionate [Flonase] 1 dose NASBOTH BID PRN 10/08/20 [History] Furosemide [Lasix] 40 mg PO DAILY 10/08/20 [History] Gabapentin [Neurontin] 600 mg PO QID 10/08/20 [History] Insulin Aspart [NovoLOG] 1 dose SQ ASDIRECTED PRN 10/08/20 [History] Insulin Glargine,Hum.Rec.Anlog [Lantus Solostar] 80 units SQ DAILY 10/08/20 [History] Olopatadine [Pataday 0.2% Ophth Soln] 1 drop EYEBOTH DAILY 10/08/20 [History] Promethazine [Phenergan] 25 mg PO Q4H PRN 10/08/20 [History] Rosuvastatin Calcium [Crestor] 40 mg PO DAILY 10/08/20 [History] dilTIAZem HCL [Cardizem Cd] 240 mg PO DAILY 10/08/20 [History] atenoloL [Atenolol] 50 mg PO DAILY #30 02/13/21 [Rx] Brexpiprazole [Rexulti] 1 mg PO DAILY 04/27/21 [History] Cholecalciferol (Vitamin D3) [Vitamin D3] 5,000 unit PO DAILY 04/27/21 [History] Naloxone HCl [Narcan] 1 dose NASBOTH ASDIRECTED PRN 04/27/21 [History] Omeprazole Magnesium [Prilosec Otc] 20 mg PO DAILY 04/27/21 [History] Semaglutide [Ozempic] 1 mg IM Q7D 04/27/21 [History] oxyCODONE 5 - 10 mg PO Q4H PRN #40 tab 04/27/21 [Rx] rOPINIRole [Requip] 1 mg PO BEDTIME 04/27/21 [History] - CURRENT (IN HOUSE) MEDS Current Meds: Current Medications Acetaminophen (Acetaminophen 325 Mg Tab) 975 mg PO ONETIME JANICE Last Admin: 04/28/21 06:48 Dose: 975 mg Documented by: Morphine Sulfate 8 mg/Epinephrine HCl 0.3 mg/Cefuroxime Sodium 750 mg/Sodium Chloride 8.9 ml 0 mg .XX ASDIRECTED PRN PRN Reason: PAIN Stop: 04/28/21 23:00 Lactated Ringer's (Ringers, Lactated) 1,000 mls @ 125 mls/hr IV ASDIRECTED JANICE Last Admin: 04/28/21 06:40 Dose: 125 mls/hr Documented by: Lidocaine/Sodium Bicarbonate (Lidocaine 1%/Sod Bicarbonate In Ns 8.4% 1 Ml Syringe) 0.25 ml IDERM ONETIME PRN PRN Reason: Prior to IV Start Oxycodone HCl (Oxycodone Er 10 Mg Tab.Er) 10 mg PO ONETIME [facility] Last Admin: 04/28/21 06:48 Dose: 10 mg Documented by: Pregabalin (Pregabalin 25 Mg Cap) 50 mg PO ONETIME JANICE Last Admin: 04/28/21 06:48 Dose: 50 mg Documented by: Sodium Chloride (Sodium Chloride 0.9% 10 Ml Syringe) 10 ml FLUSH ASDIRECTED PRN PRN Reason: Keep Vein Open Discontinued Medications Bupivacaine HCl (Bupivacaine 0.25% 10 Ml Sdv) Confirm Administered Dose 10 ml .ROUTE .STK-MED ONE Stop: 04/28/21 06:38 Morphine Sulfate 8 mg/Epinephrine HCl 0.3 mg/Cefuroxime Sodium 750 mg/Sodium Chloride 8.9 ml 0 mg .XX ASDIRECTED PRN PRN Reason: PAIN Morphine Sulfate 8 mg/Epinephrine HCl 0.3 mg/Cefuroxime Sodium 750 mg/Sodium Chloride 8.9 ml 0 mg .XX ASDIRECTED PRN PRN Reason: PAIN Fentanyl (Fentanyl 100 Mcg/2 Ml Sdv) Confirm Administered Dose 100 mcg .ROUTE .STK-MED ONE Stop: 04/28/21 06:58 Midazolam HCl (Midazolam 1 Mg/Ml 2 Ml Sdv) Confirm Administered Dose 2 mg .ROUTE .STK-MED ONE Stop: 04/28/21 06:59 Propofol (Propofol 200 Mg/20 Ml Sdv) Confirm Administered Dose 400 mg .ROUTE .STK-MED ONE Stop: 04/28/21 06:59 Tranexamic Acid (Tranexamic Acid 1,000 Mg/10 Ml Amp) Confirm Administered Dose 1,000 mg .ROUTE .STK-MED ONE Stop: 04/28/21 06:26 Triamcinolone Acetonide (Triamcinolone Acetonide 40 Mg/Ml 1 Ml Sdv) Confirm Administered Dose 40 mg .ROUTE .STK-MED ONE Stop: 04/28/21 06:38 Vancomycin HCl (Vancomycin 1 Gm Sdv) Confirm Administered Dose 1 gm .ROUTE .STK- MED ONE Stop: 04/28/21 06:26
[2021-04-28] MEDS ORDERED: ceFAZolin 1 GM Vial ONE (07:16)
[2021-04-28] MEDS ORDERED: Lactated Ringers 1,000 ML ONE (07:56)
[2021-04-28] MEDS: Vancomycin 1 GM SDV ONE ×2 (08:13→08:49)
[2021-04-28] MEDS: Morphine 8 MG, EPINEPHrine 0.3 MG, Cefuroxime 750 MG, Sodium Chloride 0.9% 8.9 ML PRN ×8 (08:13→08:49)
[2021-04-28] MEDS: Triamcinolone Acetonide 40 MG/ML 1 ML SDV ONE ×2 (08:14→09:11)
[2021-04-28] MEDS: Bupivacaine 0.25% 10 ML SDV ONE ×2 (08:15→09:11)
--- NOTE | 2021-04-28 10:47 | CR ---
Left hip and pelvis: AP view of the pelvis was obtained as well as crosstable lateral views of the left hip. Comparison: Prior left hip CT study of 03/03/21. Left hip prosthesis is noted. Components are aligned. Underlying bony structures show nothing acute. Minimal soft tissue air is seen. Impression: 1. Satisfactory postoperative radiographic appearance of recently placed left hip prosthesis. Diagnostic code #2
[2021-04-28] MEDS ORDERED: oxyCODONE 5 MG Tab PO PRN (10:55)
[2021-04-28] MEDS ORDERED: Albuterol 0.083% 2.5 MG/3 ML Neb Soln NEB ONE (11:37)
--- NOTE | 2021-04-28 12:23 | PCM.POSTAN ---
POST ANESTHESIA ASSESSMENT - MENTAL STATUS Mental Status: Alert, Oriented - VITAL SIGNS Vital Signs: Postoperative Vital Signs at 09:20 118/69 79 HR 20 RR 91% SpO2 - RESPIRATORY Respiratory Status: Respiratory Rate WNL, Airway Patent, O2 Saturation Stable, Supplemental Oxygen - CARDIOVASCULAR CV Status: Pulse Rate WNL, Blood Pressure Stable - GASTROINTESTINAL GI Status: No Symptoms - PAIN Pain Score: 0 (post SAB) - POST OP HYDRATION Hydration Status: Adequate & Stable
[2021-04-28] MEDS ORDERED: Cyclobenzaprine 10 MG Tab PO ONE (13:11)
[2021-04-28] MEDS ORDERED: oxyCODONE 5 MG Tab PO STA (13:11)
[2021-04-28] MEDS ORDERED: Ketorolac 30 MG/ML SDV IVPUSH SCH (13:45)
--- NOTE | 2021-04-28 14:10 | PCM48HPAN ---
Post Anesthesia Note - EVALUATION WITHIN 48HRS OF ANESTHETIC Vital Signs in Normal Range: Yes Patient Participated in Evaluation: Yes Respiratory Function Stable: Yes (maintains SpO2 on RA, lungs CTA) Airway Patent: Yes Cardiovascular Function Stable: Yes Hydration Status Stable: Yes Pain Control Satisfactory: Yes (continuing with PO analgesia) Nausea and Vomiting Control Satisfactory: Yes Mental Status Recovered: Yes Vital Signs: Last Vital Signs Temp 98.1 F 04/28/21 13:40 Pulse 91 04/28/21 13:40 Resp 16 04/28/21 13:40 BP 151/75 H 04/28/21 13:40 Pulse Ox 98 04/28/21 13:40 - COMMENTS/OBSERVATIONS Free Text/Narrative:: I have discussed with the patient the intraoperative episode of hypoxia which may have been attributed to fat microemboli to the lungs. I have explained that this was a reversible condition that seemed to have been resolved by now. Possible risks and complications related to pulmonary fat emboli have been explained to the patient and she has been given the choice to stay overnight for observation ( Dr Almaguer, the hospitalist has been made aware of that) or to go home and return to ED in case of chest pain, shortness of breath of any other cardiopulmonary changes. The patient and the family member verbalized understanding and opted to go home and be cognizant of any signs of respiratory of cardiac changes. Jose Alberto Holt, INDUCTION MACHINE SETTER
[2021-04-28 16:28] VITALS: BP 153/90; PULSE 75
--- NOTE | 2021-05-17 20:08 | PCM.OPNOTE ---
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
--- NOTE | 2021-05-18 08:13 | OR ---
DATE OF OPERATION: 04/28/2021 SURGEON: Darin Toney MD OPERATION PERFORMED: Left total hip arthroplasty with [employer] robotics with left basilar thumb joint injection. 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 ANESTHESIA: Local MAC with spinal. ANESTHESIA PROVIDER: Suzie Giordano. ASSISTANTS: Ranjana Shah PA-C, and Amy Clarke LPN ESTIMATED BLOOD LOSS: 100 mL. COMPLICATIONS: None. CONDITION: Stable. IMPLANTS: 1. [place] size 48 mm solid Tritanium II acetabular cup. 2. [place] size 2, 132-degree Accolade II stem. 3. 36, +0 Biolox femoral head. DESCRIPTION OF PROCEDURE: The patient was identified in the preoperative holding area. Proper site was marked, identified by the surgeon. The patient was taken back to the operative theater, where after adequate anesthesia, the patient was placed in a right lateral decubitus position. Axillary roll was placed. Pegs were then placed and well padded. The patient's gluteal fold was parallel to the floor. Left hip was then sterilely prepped and draped in the usual sterile fashion. OR time- out was performed. The patient received 2 g of Ancef. At this time, 3 small focal incisions were made over the iliac crest 3 fingerbreadths posterior to the ASIS. Three 4.0 Schanz pins were then placed and a [employer] robotic array was placed down onto the iliac crest. Standard posterior incision was made centered over the greater trochanter. IT band and gluteal fascia were incised. Charnley retractor was then placed. Checkpoint was placed in the greater tuberosity and leg lengths were measured using [place] Jeancarlos robotics. Takedown of short external rotators was then done from the level of the piriformis down to the lesser trochanter. Hip was then dislocated. Neck cut was completed and found to be adequate. Attention was turned to the acetabulum. Anterior and posterior acetabular retractors were placed. There was adequate visualization at this time. Removal of the pulvinar and the remaining labrum was done at this time. Checkpoint was placed on the superior rim of the acetabulum. Also, the 3 checkpoints on the iliac crest were then utilized and 15 points were obtained intra-articularly and then 15 points extra-articularly in the acetabulum. 48 mm reamer was placed on the [employer] robotic arm. It was then placed into the acetabulum and was reamed to 45 degrees of abduction and 20 degrees of anteversion and was found to have a good bony bleeding bed. A 48 mm Tritanium II cup was then placed on the [employer] robotic arm, it was impacted in place with adequate purchase. A 36 mm flat liner was then impacted into place. Attention was turned to the femur. Starter awl was placed down the canal. Box chisel was used out laterally. Starting with a 0 broach, I was able to broach up to a size 2, which was found to be rotationally and vertically stable. 132- degree neck with 0 was trialed. It was found to have adequate oriental orthodox of leg lengths and stable throughout range of motion. Bone hook was used to dislocate the hip. Trial implants were then removed. Size 2 Accolade II stem was then impacted into place and a 36, +0 Biolox femoral head was impacted on the stem. Hip was then relocated. #5 Ethibond was then used for closure of the capsule. 1 L of pulse lavage irrigation with Ancef was irrigated through the hip along with 400 mL of IrriSept irrigation. Topical tranexamic acid and vancomycin powder were applied and periarticular injection was completed. #2 barbed suture was used for closure of the IT band and gluteal fascia, 2-0 Vicryl was used subcutaneously, and Prineo was used for skin closure. The patient tolerated this part of the procedure well. After this, under sterile technique, 1 mL of 40 mg of Kenalog and 1 mL of 0.25% Marcaine were injected to the left basilar thumb joint. The patient tolerated all procedures well and was sent to PACU in stable condition. RIZWAN /[id number]
== END 2021-04-28 16:10 | disposition home or self-care (01) ==
LOC: JD.SDS 06:13
PROVIDERS: ATTEND Orthopaedic Surgery
DX: M16.12 Unilateral primary osteoarthritis, left hip (principal); M18.12 Unilateral primary osteoarthritis of first carpometacarpal joint, left hand; K21.9 Gastro-esophageal reflux disease without esophagitis; I12.9 Hypertensive chronic kidney disease with stage 1 through stage 4 chronic kidney disease, or unspecified chronic kidney disease; E11.22 Type 2 diabetes mellitus with diabetic chronic kidney disease; N18.30 Chronic kidney disease, stage 3 unspecified; Z79.4 Long term (current) use of insulin; Z79.899 Other long term (current) drug therapy; Z88.8 Allergy status to other drugs, medicaments and biological substances; Z98.890 Other specified postprocedural states; Z87.891 Personal history of nicotine dependence
CPT/HCPCS: 20605; 27130; 36415; 73501; 82947; 86850; 86900; 86901; 97110; 97116; 97161; A9270; C1713; C1776; J0171; J0690; J0697; J1885; J2250; J2270; J2370; J2704; J3010; J3301; J3370; J3490; J7120; 01214

== ENCOUNTER 2022-06-26 15:25 | Emergency (ER) | payer BC, MEDICARE ==
[2022-06-26 15:52] VITALS: BP 155/85; PULSE 84
[2022-06-26] MEDS ORDERED: Lactated Ringers 1,000 ML IV ONE (16:05)
[2022-06-26] MEDS ORDERED: fentaNYL 100 MCG/2 ML SDV IVPUSH ONE ×2 (16:06→17:38)
[2022-06-26] MEDS ORDERED: HYDROmorphone 0.5 MG/0.5 ML Syringe IVPUSH ONE (16:06)
[2022-06-26] MEDS ORDERED: oxyCODONE ER 20 MG TAB.ER PO ONE (17:36)
== END 2022-06-26 18:18 | disposition home or self-care (01) ==
LOC: JD.ED 15:25
DX: G89.18 Other acute postprocedural pain (principal); I12.9 Hypertensive chronic kidney disease with stage 1 through stage 4 chronic kidney disease, or unspecified chronic kidney disease; N18.30 Chronic kidney disease, stage 3 unspecified; E11.22 Type 2 diabetes mellitus with diabetic chronic kidney disease; E78.00 Pure hypercholesterolemia, unspecified; K21.9 Gastro-esophageal reflux disease without esophagitis; F32.A Depression, unspecified; Z79.4 Long term (current) use of insulin; Z79.899 Other long term (current) drug therapy; Z88.8 Allergy status to other drugs, medicaments and biological substances; Z88.6 Allergy status to analgesic agent
CPT/HCPCS: 72125; 96361; 96374; 96375; 96376; 99283; A9270; J1170; J3010; J7120

== ENCOUNTER 2022-07-02 18:47 | Emergency (ER) | payer BC, MEDICARE ==
[2022-07-02] MEDS ORDERED: Ondansetron 4 MG/2 ML SDV IVPUSH ONE (19:44)
[2022-07-02] MEDS ORDERED: Lactated Ringers 1,000 ML IV ONE (19:44)
[2022-07-02] MEDS ORDERED: Ondansetron 4 MG Tab.DIS ONE (19:58)
[2022-07-02] MEDS ORDERED: Ondansetron 4 MG Tab.DIS PO ONE (19:58)
[2022-07-02 20:23] VITALS: BP 148/83; PULSE 110
[2022-07-02] MEDS ORDERED: diphenhydrAMINE 50 MG/ML SDV IVPUSH ONE (22:41)
[2022-07-02] MEDS ORDERED: Metoclopramide 10 MG/2 ML SDV IVPUSH ONE (22:41)
[2022-07-02] MEDS ORDERED: Lactated Ringers 1,000 ML IV SCH (23:00)
[2022-07-03] MEDS ORDERED: Ondansetron 4 MG/2 ML SDV IVPUSH ONE (01:30)
[2022-07-03] MEDS ORDERED: LORazepam 1 MG Tab PO ONE (01:41)
[2022-07-03] MEDS ORDERED: LORazepam 2 MG/ML SDV IVPUSH ONE (01:47)
== END 2022-07-03 03:05 | disposition home or self-care (01) ==
LOC: JD.ED 18:47
DX: K52.9 Noninfective gastroenteritis and colitis, unspecified (principal); R11.2 Nausea with vomiting, unspecified; E78.00 Pure hypercholesterolemia, unspecified; E11.22 Type 2 diabetes mellitus with diabetic chronic kidney disease; I12.9 Hypertensive chronic kidney disease with stage 1 through stage 4 chronic kidney disease, or unspecified chronic kidney disease; N18.30 Chronic kidney disease, stage 3 unspecified; J45.909 Unspecified asthma, uncomplicated; K21.9 Gastro-esophageal reflux disease without esophagitis; Z88.8 Allergy status to other drugs, medicaments and biological substances; Z79.899 Other long term (current) drug therapy
CPT/HCPCS: 36415; 74019; 74176; 80053; 80307; 83690; 85025; 96361; 96374; 96375; 96376; 99284; A9270; J1200; J2060; J2405; J2765; J7120

== ENCOUNTER 2022-07-12 12:05 | Emergency (ER) | payer BC, MEDICARE ==
[2022-07-12 12:35] VITALS: PULSE 110
[2022-07-12] MEDS ORDERED: Sodium Chloride 0.9% 10 ML Syringe FLUSH PRN (12:37)
[2022-07-12] MEDS ORDERED: HYDROmorphone 0.5 MG/0.5 ML Syringe IVPUSH ONE (12:51)
[2022-07-12] MEDS ORDERED: Ondansetron 4 MG/2 ML SDV IVPUSH ONE ×2 (12:51→14:51)
[2022-07-12] MEDS ORDERED: Sodium Chloride 0.9% 1,000 ML IV STA (12:51)
[2022-07-12 14:15] LABS: CORONAVIRUS COVID-19 NAA NEGATIVE (NEGATIVE)
[2022-07-12 14:33] LABS: ESTIMATED GFR 65 mL/min (>60)
[2022-07-12] MEDS ORDERED: Dicyclomine 10 MG Cap PO ONE (14:53)
[2022-07-12] MEDS ORDERED: diphenhydrAMINE 50 MG/ML SDV IVPUSH ONE (16:09)
[2022-07-12] MEDS ORDERED: Metoclopramide 10 MG/2 ML SDV IVPUSH ONE (16:09)
[2022-07-12] MEDS ORDERED: LORazepam 2 MG/ML SDV IVPUSH ONE (16:10)
[2022-07-12 19:00] VITALS: BP 166/84
== END 2022-07-12 18:50 | disposition home or self-care (01) ==
LOC: JD.ED 12:05
DX: K52.9 Noninfective gastroenteritis and colitis, unspecified (principal); R11.2 Nausea with vomiting, unspecified; E11.22 Type 2 diabetes mellitus with diabetic chronic kidney disease; I12.9 Hypertensive chronic kidney disease with stage 1 through stage 4 chronic kidney disease, or unspecified chronic kidney disease; N18.30 Chronic kidney disease, stage 3 unspecified; K21.9 Gastro-esophageal reflux disease without esophagitis; Z88.6 Allergy status to analgesic agent; Z88.8 Allergy status to other drugs, medicaments and biological substances; Z20.822 Contact with and (suspected) exposure to COVID-19
CPT/HCPCS: 0240U; 36415; 74019; 80053; 81001; 83690; 85025; 86140; 96361; 96374; 96375; 96376; 99284; A9270; J1170; J1200; J2060; J2405; J2765; J3490; J7030

== ENCOUNTER 2024-11-12 06:54 | Day surgery (SDC) | payer BC, MEDICARE ==
[~2024-11-12 06:54] MED LIST changes: -Acetaminophen 325 MG Tab PO SCH; -Lidocaine 1%/Sod Bicarbonate in NS 8.4% 1 ML Syringe IDERM PRN; -Morphine 8 MG, EPINEPHrine 0.3 MG, Cefuroxime 750 MG, Sodium Chloride 0.9% 8.9 ML PRN; -Pregabalin 25 MG Cap PO SCH; +Sodium Chloride 0.9% 10 ML Syringe FLUSH SCH; -oxyCODONE ER 10 MG TAB.ER PO SCH
[2024-11-12] MEDS ORDERED: Propofol 200 MG/20 ML SDV ONE (07:12)
[2024-11-12] MEDS ORDERED: Lidocaine 1% 6 ML ONE (07:13)
[2024-11-12] MEDS: Lactated Ringers 1,000 ML IV SCH (07:33)
[2024-11-12 09:34] VITALS: BP 143/86; PULSE 79
== END 2024-11-12 09:09 | disposition home or self-care (01) ==
LOC: JD.SDS 06:54
PROVIDERS: ATTEND Surgery
DX: K29.50 Unspecified chronic gastritis without bleeding (principal); R13.10 Dysphagia, unspecified; K21.9 Gastro-esophageal reflux disease without esophagitis; I25.10 Atherosclerotic heart disease of native coronary artery without angina pectoris; E78.00 Pure hypercholesterolemia, unspecified; I10 Essential (primary) hypertension; E11.9 Type 2 diabetes mellitus without complications; Z88.8 Allergy status to other drugs, medicaments and biological substances; Z87.891 Personal history of nicotine dependence; Z79.899 Other long term (current) drug therapy
CPT/HCPCS: 43239; 88305; 88342; C9777; J2003; J2704; J7120; 00731

== ENCOUNTER → 2024-12-13 | Day surgery (SDC) | payer BC, MEDICARE ==
[2024-12-13] MEDS: Lidocaine 2% Viscous Solution 15 ML UD PO ONE (07:25)
== END ==
LOC: JD.SDS 07:15
PROVIDERS: ATTEND Surgery
DX: K22.89 Other specified disease of esophagus (principal); R13.10 Dysphagia, unspecified; K21.9 Gastro-esophageal reflux disease without esophagitis; I25.10 Atherosclerotic heart disease of native coronary artery without angina pectoris; E11.9 Type 2 diabetes mellitus without complications; I10 Essential (primary) hypertension; Z88.8 Allergy status to other drugs, medicaments and biological substances; Z79.899 Other long term (current) drug therapy; Z87.891 Personal history of nicotine dependence
CPT/HCPCS: 91010; A9270